=== PATIENT | female | born 1950 | race African-American/Black ===

== ENCOUNTER 2025-06-09 22:30 | Inpatient (IN) | payer OTHER ==
[~2025-06-09] VITALS: Ht 167.6 cm; Wt 87.6 kg
[2025-06-09 22:35] VITALS: O2SAT 99
[2025-06-10 00:06] LABS: BASOPHILS % 0.7 % (0.0-2.0); EOSINOPHILS % 0.6 % (0.0-5.0); HEMATOCRIT. 39.2 % (36.0-48.0); HEMOGLOBIN. 12.6 g/dL (12.0-16.0); LYMPHOCYTES % 32.5 % (20.0-50.0); MEAN PLATELET VOLUME 7.5 fl (7.4-10.4); MONOCYTES % 7.2 % (2.0-8.0); NEUTROPHILS % 59.0 % (40.0-76.0); PLATELET 193 x1000/uL (130-400); RED BLOOD CELL COUNT 4.14 mill/uL (4.2-5.4); RED CELL DISTRIBUTION WIDTH 14.6 % (11.6-14.6)
[2025-06-10 00:26] LABS: CREATININE 0.9 mg/dL (0.6-1.0); UREA NITROGEN BLOOD 16 mg/dL (9-23)
[2025-06-10 00:28] LABS: ASPARTATE AMINOTRANSFERASE 13 IU/L (<34); BILIRUBIN DIRECT 0.1 mg/dL (<=3.0); TROPONIN I HIGH SENSITIVITY 8 ng/L (3.0-34)
[2025-06-10 00:29] LABS: BILIRUBIN TOTAL 0.5 mg/dL (0.1-1.0); PROTEIN TOTAL 7.1 g/dL (6.0-8.3)
[2025-06-10 02:35] LABS: TROPONIN I HIGH SENSITIVITY 9 ng/L (3.0-34)
[2025-06-10] MEDS ORDERED: IPRATROPIUM/ALBUTEROL 0.5-3(2.5)MG/3ML NEB HHN PRN (06:30)
[2025-06-10] MEDS ORDERED: DOCUSATE SODIUM 100MG CAPSULE PO PRN (06:30)
[2025-06-10] MEDS ORDERED: LORAZEPAM 2MG/ML UD SYRINGE IV PRN (06:30)
[2025-06-10] MEDS ORDERED: ACETAMINOPHEN 325MG TABLET PO PRN ×2 (06:30)
[2025-06-10] MEDS ORDERED: GUAIFENESIN 200MG/10ML SUGAR FREE UDC PO PRN (06:30)
[2025-06-10] MEDS ORDERED: ONDANSETRON HCL 4MG/2ML INJ IV PRN (06:30)
[2025-06-10] MEDS ORDERED: DEXTROSE 50% WATER 50ML SYRINGE IV PRN (07:00)
[2025-06-10] MEDS: BLOOD SUGAR DIAGNOSTIC STRIP TEST SCH (07:10)
[2025-06-10 07:30] VITALS: BP 144/83; PULSE 80; RESP 18; TEMP 36.0844
[2025-06-10 08:00] VITALS: BP 144/83; PULSE 80; RESP 18; TEMP 36.1; O2SAT 100
[2025-06-10] MEDS: LEVETIRACETAM 500MG PREMIX 100 ML IV NR (09:12)
[2025-06-10] MEDS: DEXT 5%/0.9% NACL 1,000 ML IV SCH (09:12)
[2025-06-10] MEDS: PANTOPRAZOLE SODIUM 40 MG/VIAL IV SCH (09:12)
[2025-06-10 12:00] VITALS: BP_SYST 128; BP_SYST 131; BP_DIAS 59; BP_DIAS 63; BP_DIAS 75; PULSE 75; RESP 18; TEMP 36.2; O2SAT 99
[2025-06-10] MEDS: LORAZEPAM 2MG/ML UD SYRINGE IV PRN (12:23)
[2025-06-10] MEDS ORDERED: LOSA1TAB34 MT (13:04)
[2025-06-10] MEDS ORDERED: SERT25TA74 MT (13:04)
[2025-06-10 13:30] LABS: CLARITY URINE CLEAR (CLEAR); COLOR URINE YELLOW (YELLOW); GLUCOSE URINE NEGATIVE (NEGATIVE); KETONES URINE NEGATIVE (NEGATIVE); LEUKOCYTE ESTERASE URINE NEGATIVE (NEGATIVE); NITRITE URINE NEGATIVE (NEGATIVE); OCCULT BLOOD URINE NEGATIVE (NEGATIVE); PH URINE 7.0 (4.5-8.0); PROTEIN URINE NEGATIVE (NEGATIVE); SPECIFIC GRAVITY URINE 1.011 (1.005-1.030); UROBILINOGEN URINE 0.2 E.U./dL (0.2-1.0)
[2025-06-10 16:00] VITALS: BP 122/82; PULSE 82; RESP 18; TEMP 36.2; O2SAT 95
[2025-06-10 17:59] LABS: TROPONIN I HIGH SENSITIVITY 9 ng/L (3.0-34)
[2025-06-10 18:00] LABS: CREATINE KINASE MB FRACTION 1.1 ng/mL (0.5-3.6)
[2025-06-10 18:04] LABS: FOLIC ACID (FOLATE) SERUM 14.03 ng/mL (>5.38)
[2025-06-10 18:05] LABS: VITAMIN B12 SERUM 534 pg/mL (211-911)
[2025-06-10 20:00] VITALS: BP 123/58; PULSE 63; RESP 20; TEMP 36.1; O2SAT 97
[2025-06-10] MEDS: ENOXAPARIN 40MG/0.4ML SYR SUBCUT SCH (20:20)
[2025-06-11] VITALS: BP 169/76; PULSE 70; RESP 18; TEMP 36.1; O2SAT 96
[2025-06-11 01:50] LABS: TROPONIN I HIGH SENSITIVITY 9 ng/L (3.0-34)
[2025-06-11 01:53] LABS: ASPARTATE AMINOTRANSFERASE 14 IU/L (<34); BILIRUBIN DIRECT 0.2 mg/dL (<=3.0); BILIRUBIN TOTAL 0.6 mg/dL (0.1-1.0); PROTEIN TOTAL 5.9 g/dL (6.0-8.3)
[2025-06-11 04:00] VITALS: BP 113/74; PULSE 63; RESP 20; TEMP 36.5; O2SAT 98
[2025-06-11 08:00] VITALS: BP 131/69; PULSE 76; RESP 20; TEMP 36.7; O2SAT 98
[2025-06-11 08:19] LABS: BASOPHILS % 0.4 % (0.0-2.0); EOSINOPHILS % 1.4 % (0.0-5.0); HEMATOCRIT. 37.5 % (36.0-48.0); HEMOGLOBIN. 12.4 g/dL (12.0-16.0); LYMPHOCYTES % 33.7 % (20.0-50.0); MEAN PLATELET VOLUME 8.0 fl (7.4-10.4); MONOCYTES % 9.0 % (2.0-8.0); NEUTROPHILS % 55.5 % (40.0-76.0); PLATELET 182 x1000/uL (130-400); RED BLOOD CELL COUNT 3.99 mill/uL (4.2-5.4); RED CELL DISTRIBUTION WIDTH 15.0 % (11.6-14.6)
[2025-06-11 08:23] LABS: CREATININE 0.8 mg/dL (0.6-1.0)
[2025-06-11 08:24] LABS: LDL CHOLESTEROL 73 mg/dL (5-100); TRIGLYCERIDE 68 mg/dL (0-150); UREA NITROGEN BLOOD 10 mg/dL (9-23)
[2025-06-11 08:25] LABS: ASPARTATE AMINOTRANSFERASE 14 IU/L (<34)
[2025-06-11 08:26] LABS: BILIRUBIN DIRECT 0.2 mg/dL (<=3.0); BILIRUBIN TOTAL 0.7 mg/dL (0.1-1.0); PROTEIN TOTAL 6.3 g/dL (6.0-8.3)
[2025-06-11 08:27] LABS: T4 FREE 1.24 ng/dL (0.89-1.76)
[2025-06-11 12:00] VITALS: BP 119/77; PULSE 65; RESP 19; TEMP 36.4; O2SAT 98
[2025-06-11 16:00] VITALS: BP 127/66; PULSE 70; RESP 19; TEMP 36.5; O2SAT 98
[2025-06-11 16:53] LABS: TROPONIN I HIGH SENSITIVITY 8 ng/L (3.0-34)
[2025-06-11 18:44] VITALS: BP 124/72; PULSE 78; RESP 18; TEMP 97.9
[2025-06-12] MEDS ORDERED: LOSARTAN 50 MG TABLET PO SCH (09:00)
== END 2025-06-11 21:15 | disposition short-term general hospital (02) | DRG 74 ==
LOC: ER 22:30 → 8WST 06-10 02:28 → EDBEDREQDT 06-10 04:42 → EDBEDREQTM 06-10 04:42 → EDBEDREQ 06-10 04:42 → ENRESERV 06-10 05:06
PROVIDERS: ADMIT Hospitalist; ATTEND Hospitalist
DX: G90.89 Other disorders of autonomic nervous system (principal); R56.9 Unspecified convulsions; F03.90 Unspecified dementia, unspecified severity, without behavioral disturbance, psychotic disturbance, mood disturbance, and anxiety; I10 Essential (primary) hypertension; Z81.8 Family history of other mental and behavioral disorders
CPT/HCPCS: 36415; 71045; 80048; 80061; 80076; 81003; 82140; 82550; 82553; 82607; 82746; 82962; 83036; 83735; 83880; 84439; 84443; 84481; 84484; 85025; 93005; 93880; 99285; A4606; J1650; J1953; J2060; J2470; J7042